=== PATIENT | male | born 1985 | race Caucasian/White ===

== ENCOUNTER 2022-10-16 02:24 | Emergency (ER) | payer OTHER ==
[2022-10-16] MEDS ORDERED: Lidocaine 1% 5 ML VIAL INJECT ONE (02:51)
[2022-10-16] MEDS ORDERED: Diphtheria,Pertussis(Acell),Tetanus Vaccine 0.5 ML Syringe ONE (02:56)
[2022-10-16] MEDS ORDERED: Bacitracin Oint 1 GM U/D Packet TOP ONE (03:36)
[2022-10-16] MEDS ORDERED: Bacitracin Oint 1 GM U/D Packet ONE (03:36)
== END 2022-10-16 03:45 | disposition home or self-care (01) ==
LOC: MW.ED 02:24
DX: S51.011A Laceration without foreign body of right elbow, initial encounter (principal); Z23 Encounter for immunization; Z91.030 Bee allergy status; W22.09XA Striking against other stationary object, initial encounter
CPT/HCPCS: 12001; 90471; 90715; 99282; J3490